=== PATIENT | female | born 1935 | race Caucasian/White ===

== ENCOUNTER 2021-08-02 14:24 | Emergency (ER) | payer MEDICARE, OTHER ==
[~2021-08-02] VITALS: Ht 154.9 cm; Wt 54.4 kg
[2021-08-02] MEDS ORDERED: EYE DROPS (14:46)
[2021-08-02] MEDS ORDERED: IV NORMAL SALINE 1000 ML BAG IV ONE (15:30)
[2021-08-02 15:57] LABS: HEMATOCRIT 38.9 % (31.2-41.9); MEAN CORPUSCULAR HEMOGLOBIN 31.3 uug (24.7-32.8); MEAN CORPUSCULAR VOLUME 91.2 fL (75.5-95.3); PLATELET COUNT (AUTO) 298 K/uL (179-408)
[2021-08-02 16:05] LABS: CREATININE 0.8 mg/dL (0.6-1.3)
[2021-08-02 16:11] LABS: BILIRUBIN,TOTAL 0.7 mg/dL (0.2-1.0); TOTAL PROTEIN, SERUM 8.2 g/dL (6.4-8.2)
[2021-08-02 17:21] LABS: *BILIRUBIN,URIN NEGATIVE (NEGATIVE); *BLOOD, URINE NEGATIVE (NEGATIVE); *COLOR,URINE YELLOW (YELLOW); *KETONES,URINE NEGATIVE (NEGATIVE); *UROBILINOGEN,URINE 0.2 E.U./dl (NORMAL); LEUKOCYTE ESTERASE ,URINE 1+ (NEGATIVE); NITRITE, URINE NEGATIVE (NEGATIVE); UGLUCOSE NEGATIVE (NEGATIVE)
[2021-08-02 17:30] LABS: *CLARITY,URINE SLIGHTLY HAZY (CLEAR); BACTERIA,URINE FEW /HPF (NONE SEEN); RBC,URINE 0-3 /HPF (0-3); SQUAMOUS EPITHELIAL CELL,UR FEW /HPF (NONE SEEN)
[2021-08-02] MEDS ORDERED: CEPH500C2 PO (18:00)
--- NOTE | 2021-08-02 18:33 | NUR ---
IV removed intact, site okay, bandaged. pt and family given d/c instructions, family verbalized understanding.
== END 2021-08-02 18:30 | disposition home or self-care (01) ==
LOC: ER 14:24
DX: S06.0X0A Concussion without loss of consciousness, initial encounter (principal); W01.0XXA Fall on same level from slipping, tripping and stumbling without subsequent striking against object, initial encounter; Y93.H2 Activity, gardening and landscaping; Y92.9 Unspecified place or not applicable; S00.93XA Contusion of unspecified part of head, initial encounter; N39.0 Urinary tract infection, site not specified; H40.9 Unspecified glaucoma; F03.90 Unspecified dementia, unspecified severity, without behavioral disturbance, psychotic disturbance, mood disturbance, and anxiety
CPT/HCPCS: 36415; 70030-TC; 70450; 85025; 87086; 93005; A4663